=== PATIENT | female | born 1955 | race African-American/Black ===

== ENCOUNTER 2017-01-16 09:24 | Outpatient (CLI) | payer BC ==
--- NOTE | 2017-01-16 14:37 | MRI ---
BRAIN MRI WITH AND WITHOUT CONTRAST: Date: 01/16/17 COMPARISON: 01/18/16 and prior. HISTORY: Occasional headache, yearly follow-up for meningioma. TECHNIQUE: Multiplanar, multisequence MR imaging of the brain is obtained with and without contrast. FINDINGS: The diffusion-weighted imaging demonstrates no evidence for acute infarction. The axial gradient echo imaging demonstrates no evidence for intracranial hemorrhage. The imaged paranasal sinuses and mastoid air cells are grossly unremarkable. Numerous small foci of increased T2 and FLAIR signal noted within the periventricular and deep white matter, evidence of small vessel disease. There is encephalomalacia within the posteromedial aspect of the right frontal lobe near the vertex, with overlying craniectomy changes noted. There is mild mucosal thickening involving the alveolar recess of the maxillary sinus on the left. Axial T2 imaging demonstrates normal appearance of arterial flow-voids at the level of the skull base . Postcontrast imaging demonstrates an enhancing extra-axial mass in the posterior right frontoparietal region, measuring 1.2 cm AP dimension and 0.9 cm transverse dimension, representing no significant c hange when compared to the prior exam. There is a vague area of nonspecific enhancement involving the calvarium in the left frontal region, best seen on axial thin section image 100. This lesion measures up to 1.7 cm in AP dimension, unchang ed when compared to 01/18/16. This nonspecific area of enhancement within the left frontal calvarium has enlarged since the 05/13/13 exam. No abnormal enhancement is identified within the brain parenchyma. Of note, the extra-axial mass in the posterior right frontoparietal region has grown from the 4 MRI at which time it measured 7.0 x 6.0 mm. IMPRESSION: Nonspecific right frontoparietal dural based lesion, most consistent with meningioma, not significant ly changed since 01/18/16, grown since 2013. Enhancing nonspecific lesion within the left frontal calvarium, similar in size when compared to 01/06 03/24 and increased in size when compared to 05/13/13. POS: [facility]
[2017-01-16] MEDS ORDERED: Gadobenate Dimeglumine 529 MG/1 ML (20ML VIAL) ONE (17:25)
== END 2017-01-16 09:25 | disposition home or self-care (01) ==
LOC: TBSIIMAG 09:24
PROVIDERS: ATTEND Surgery
DX: D33.2 Benign neoplasm of brain, unspecified (principal)
CPT/HCPCS: 70553; A9579